=== PATIENT | female | born 1975 | race Asian ===

== ENCOUNTER 2021-03-01 20:08 | Emergency (ER) | payer OTHER ==
[~2021-03-01] VITALS: Ht 172.7 cm; Wt 66.8 kg
[2021-03-01] MEDS ORDERED: NORCO 325 MG-51 TAB PO (22:57)
[2021-03-01 23:10] VITALS: BP 121/89; PULSE 81; TEMP 98.7
== END 2021-03-01 23:10 | disposition home or self-care (01) ==
LOC: COL.ER 20:08 → EDBD 20:10 → COL.ER 20:10
DX: M54.9 Dorsalgia, unspecified (principal); M54.2 Cervicalgia; R51.9 Headache, unspecified; V89.2XXA Person injured in unspecified motor-vehicle accident, traffic, initial encounter